=== PATIENT | female | born 1985 | race Two or more races ===

== ENCOUNTER 2018-11-22 20:21 | Emergency (ER) | payer SELFPAY ==
[~2018-11-22] VITALS: Ht 167.6 cm; Wt 147.4 kg
[2018-11-22 21:59] LABS: Urine Bacteria MOD /hpf (None Seen); Urine Blood 1+ /uL (Negative); Urine Mucus FEW (None Seen); Urine Specific Gravity 1.022 (1.001-1.035); Urine WBC 134 /hpf (0 - 5)
[2018-11-22 22:31] VITALS: BP 122/53
[2018-11-22] MEDS ORDERED: LIDOCAINE 1% HCL (LOCAL ANESTH.) INJ 20ML MDV ID ONE (23:30)
[2018-11-22] MEDS ORDERED: TRIAMCINOLONE 40MG/ML 1ML VIAL IX ONE (23:30)
[2018-11-23] MEDS ORDERED: cefTRIAXone SOD 1,000 MG VL IM ONE (00:30)
[2018-11-23] MEDS ORDERED: PHENAZOPYRIDINE HCL 100 MG TAB PO ONE (00:30)
== END 2018-11-23 00:47 | disposition home or self-care (01) ==
LOC: ER 20:27
DX: M72.2 Plantar fascial fibromatosis (principal); N39.0 Urinary tract infection, site not specified; M77.31 Calcaneal spur, right foot
CPT/HCPCS: 20552; 73630; 81001; 81025; 96372; 99284; J0696; J2001; J3301